=== PATIENT | male | born 1970 | race African-American/Black ===

== ENCOUNTER 2019-03-19 10:25 | Observation (INO) ==
[2019-03-19 11:21] LABS: Basophils % 0.2 % (0.0-0.8); Eosinophils # 0.1 10*3/uL (0.0-0.87); Eosinophils % 1.4 % (0.00-10.9); Hematocrit 39.2 VOL% (42.0-52.0); Hemoglobin 12.8 GM/DL (14.0-18.0); Immature Granulocytes % 0.9 %; Immature Granulocytes Absolute 0.08 #; Mean Corpuscular HGB Conc 32.7 GM/DL (32-36); Mean Corpuscular Volume 92.9 FL (87-102); Mean Platelet Volume 9.5 FL (9.6-12.0); Monocytes % 15.5 % (1.7-12.7); Platelet Count 316 T/CUMM (130-400); Red Blood Count 4.22 MC/CUMM (3.8-5.5); Red Cell Distribution Width 13.3 % (9.3-17.3); White Blood Count 8.8 T/CUMM (4-12)
[2019-03-19 11:44] LABS: Calcium 9.1 MG/DL (8.5-10.1); Osmolality,Calculated 275.4 MOS/KG (273-304)
[2019-03-19] MEDS ORDERED: methylPREDNISolone SOD SUC 125 MG/2 ML VIAL IV STA (11:47)
[2019-03-19] MEDS ORDERED: cefTRIAXone 1,000 MG in SODIUM CHLORIDE 0.9% 100 ML IV STA (11:47)
[2019-03-19] MEDS ORDERED: ALBUTEROL 2.5 MG/3 ML NEB RESP TX SCH (12:00)
[2019-03-19 12:20] LABS: ABG HCO3 35.2 MMOL/L (20-26); ABG Oxygen Saturation 99.6 % (95-100); ABG PH 7.372 (7.35-7.45); ABG PO2 233.1 MM HG (80-95); ABG TCO2 37.1 MMOL/L (23-27); Allen Test Positive; Pt O2 Delivery Device Other
[2019-03-19] MEDS ORDERED: ALBUTEROL 2.5 MG/3 ML NEB RESP TX PRN (13:33)
[2019-03-19] MEDS ORDERED: ACETAMINOPHEN 325 MG TABLET PO PRN (13:35)
[2019-03-19] MEDS ORDERED: traZODone 50 MG TABLET PO PRN (13:35)
[2019-03-19] MEDS ORDERED: ONDANSETRON 4 MG/2 ML VIAL IV PRN (13:35)
[2019-03-19] MEDS ORDERED: MORPHINE 4 MG/1 ML VIAL IV PRN (13:35)
[2019-03-19 16:24] LABS: Apearance,Urine CLEAR (Clear); Bilirubin,Urine Negative (Negative); Blood, Urine Negative (Negative); Glucose,Urine (UA) Negative (Negative); Ketones,Urine Negative (Negative); Mucus,Urine Occasional /LPF (Occasional); Nitrite,Urine Negative (Negative); Protein,Urine Negative; RBC,Urine <1 /HPF (0-4); Urine Color Yellow (Yellow); Urine Urobilinogen < 2.0 EU/DL (0.2-1.0); WBC,Urine 1 /HPF (0-6)
[2019-03-19] MEDS: HEPARIN 5,000 UNIT/1 ML VIAL SUBCUT SCH ×2 (18:37→21:49)
[2019-03-19] MEDS: methylPREDNISolone SOD SUC 40 MG/1 ML VIAL IV SCH ×2 (18:40→21:49)
[2019-03-19] MEDS: ALBUTEROL/IPRATROPIUM 3 ML NEB RESP TX SCH (19:04)
[2019-03-19] MEDS: DOCUSATE SODIUM 100 MG CAPSULE PO SCH (21:49)
[2019-03-19] MEDS: ZALEPLON 5 MG CAPSULE PO PRN (21:50)
[2019-03-20] MEDS: ALBUTEROL/IPRATROPIUM 3 ML NEB RESP TX SCH ×4 (01:55→19:28)
[2019-03-20 05:26] LABS: Basophils % 0.1 % (0.0-0.8); Hemoglobin 10.9 GM/DL (14.0-18.0); Immature Granulocytes % 1.2 %; Lymphocytes # 0.3 10*3/uL (1.4-4.0); Lymphocytes % 3.3 % (21.2-54.2); Mean Corpuscular HGB Conc 31.1 GM/DL (32-36); Mean Corpuscular Volume 94.3 FL (87-102); Monocytes % 2.9 % (1.7-12.7); Neutrophils % 92.5 % (38.7-73.9); Platelet Count 289 T/CUMM (130-400); Red Blood Count 3.71 MC/CUMM (3.8-5.5); Red Cell Distribution Width 13.1 % (9.3-17.3); White Blood Count 8.4 T/CUMM (4-12)
[2019-03-20 05:56] LABS: Lymphocytes 8 % (20-55); Segmented Neutrophils 90 % (50-85); Total Cells Counted 100
[2019-03-20 05:57] LABS: Anisocytosis 1+; Platelet Estimate Adequate; Target Cells Few
[2019-03-20 06:08] LABS: Risk Ratio 1.79; Thyroid Stimulating Hormone 0.201 uIU/ml (0.358-3.74)
[2019-03-20 06:17] LABS: Bilirubin,Total 0.4 MG/DL (0.2-1.0); Calcium 8.4 MG/DL (8.5-10.1); Osmolality,Calculated 281.3 MOS/KG (273-304); Total Protein 6.3 G/DL (6.4-8.3)
[2019-03-20] MEDS: HEPARIN 5,000 UNIT/1 ML VIAL SUBCUT SCH ×3 (06:20→21:14)
[2019-03-20] MEDS: methylPREDNISolone SOD SUC 40 MG/1 ML VIAL IV SCH ×3 (06:21→21:09)
[2019-03-20] MEDS: DOCUSATE SODIUM 100 MG CAPSULE PO SCH ×2 (09:30→21:10)
[2019-03-20] MEDS: PANTOPRAZOLE 40 MG TABLET PO SCH (09:30)
[2019-03-20] MEDS: BUDESONIDE 0.5 MG/2 ML NEB RESP TX SCH ×2 (12:09→19:28)
[2019-03-20] MEDS ORDERED: cefTRIAXone 1,000 MG in SYRINGE 1 EACH IV SCH (12:30)
[2019-03-20] MEDS: AZITHROMYCIN 250 MG TABLET PO SCH (13:24)
[2019-03-20] MEDS ORDERED: MONTELUKAST 10 MG TABLET PO SCH (21:00)
[2019-03-20] MEDS: ZALEPLON 5 MG CAPSULE PO PRN (21:10)
[2019-03-21] MEDS: ALBUTEROL/IPRATROPIUM 3 ML NEB RESP TX SCH ×2 (00:31→07:13)
[2019-03-21] MEDS: HEPARIN 5,000 UNIT/1 ML VIAL SUBCUT SCH (05:23)
[2019-03-21] MEDS: methylPREDNISolone SOD SUC 40 MG/1 ML VIAL IV SCH (05:23)
[2019-03-21] MEDS: BUDESONIDE 0.5 MG/2 ML NEB RESP TX SCH (07:13)
[2019-03-21] MEDS: AZITHROMYCIN 250 MG TABLET PO SCH (08:27)
[2019-03-21] MEDS: PANTOPRAZOLE 40 MG TABLET PO SCH (08:27)
[2019-03-21] MEDS: DOCUSATE SODIUM 100 MG CAPSULE PO SCH (08:27)
[2019-03-21] MEDS ORDERED: BISOPROLOL/HCTZ 2.5-6.25 MG TABLET PO SCH (09:00)
[2019-03-21 09:17] VITALS: BP 142/84
== END 2019-03-21 10:59 | disposition home or self-care (01) ==
LOC: N.EDINP 10:25 → N.ED 10:25 → N.5E 20:38
PROVIDERS: ADMIT Family Medicine; ATTEND Family Medicine

== ENCOUNTER 2021-01-13 09:51 | Inpatient (IN) ==
[2021-01-13] MEDS ORDERED: methylPREDNISolone SOD SUC 125 MG/2 ML VIAL IV STA (10:15)
[2021-01-13] MEDS ORDERED: ALBUTEROL NEB SOLN 5 MG/ML 20 ML/BOTTLE ONE (10:21)
[2021-01-13 10:22] LABS: Basophils % 0.8 % (0.0-0.8); Eosinophils # 0.1 10*3/uL (0.0-0.87); Eosinophils % 2.4 % (0.00-10.9); Hematocrit 47.3 VOL% (42.0-52.0); Hemoglobin 14.7 GM/DL (14.0-18.0); Immature Granulocytes % 0.6 %; Immature Granulocytes Absolute 0.03 #; Lymphocytes % 19.4 % (21.2-54.2); Mean Corpuscular HGB Conc 31.1 GM/DL (32-36); Mean Corpuscular Volume 86.5 FL (87-102); Mean Platelet Volume 9.6 FL (9.6-12.0); Monocytes % 20.2 % (1.7-12.7); Neutrophils % 56.6 % (38.7-73.9); Platelet Count 190 T/CUMM (130-400); Red Blood Count 5.47 MC/CUMM (3.8-5.5); Red Cell Distribution Width 17.2 % (9.3-17.3); White Blood Count 5.1 T/CUMM (4-12)
[2021-01-13 10:29] LABS: PT Patient Result 11.1 SECS (10.5-12.0); Partial Thromboplastin Time 28.1 SECS (23.9-33.8)
[2021-01-13] MEDS ORDERED: ALBUTEROL NEB SOLN 5 MG/ML 20 ML/BOTTLE CONT NEB SCH (10:30)
[2021-01-13 10:39] LABS: Albumin 2.8 G/DL (3.4-5.0); Bilirubin,Total 1.14 MG/DL (0.2-1.0); Calcium 8.4 MG/DL (8.5-10.1); Osmolality,Calculated 268.1 MOS/KG (273-304); Total Protein 8.4 G/DL (6.4-8.2)
[2021-01-13 10:40] LABS: Platelet Estimate Adequate; Potassium 4.6 MMOL/L (3.5-5.1)
[2021-01-13 10:53] LABS: Bilirubin,Urine Negative (Negative); Blood, Urine Negative (Negative); Glucose,Urine (UA) Negative (Negative); Ketones,Urine Negative (Negative); Nitrite,Urine Negative (Negative); Protein,Urine Negative; RBC,Urine 1 /HPF (0-4); Squamous Epithelial Cell,Urine Occasional /HPF (0-10); Urine Appearance CLEAR (Clear); Urine Color Yellow (Yellow); Urine Specific Gravity 1.006 (1.001-1.035); Urine Urobilinogen < 2.0 EU/DL (0.2-1.0)
[2021-01-13] MEDS ORDERED: PIPERACILLIN/TAZOBACTAM 3,375 MG in SODIUM CHLORIDE 0.9% 100 ML IV STA (11:03)
[2021-01-13] MEDS ORDERED: GLUCAGON 1 MG VIAL IM PRN (13:08)
[2021-01-13] MEDS ORDERED: MORPHINE 4 MG/1 ML VIAL IV PRN (13:08)
[2021-01-13] MEDS ORDERED: ONDANSETRON 4 MG/2 ML VIAL IV PRN (13:08)
[2021-01-13] MEDS ORDERED: DOCUSATE SODIUM 100 MG CAPSULE PO PRN (13:08)
[2021-01-13] MEDS ORDERED: ACETAMINOPHEN 325 MG TABLET PO PRN (13:08)
[2021-01-13] MEDS ORDERED: DEXTROSE 50% 25 GM/50 ML VIAL IV PRN (13:08)
[2021-01-13] MEDS: AZITHROMYCIN INJ 500 MG in SODIUM CHLORIDE 0.9% 250 ML IV SCH (13:28)
[2021-01-13] MEDS: ENOXAPARIN 40 MG/0.4 ML SYRINGE SUBCUT SCH (13:28)
[2021-01-13] MEDS ORDERED: hydrALAZINE 20 MG/1 ML VIAL IV PRN (13:28)
[2021-01-13] MEDS: cefTRIAXone 1,000 MG in SODIUM CHLORIDE 0.9% 100 ML IV SCH (14:22)
[2021-01-13] MEDS: MULTIVITAMIN INJ 10 ML in SODIUM CHLORIDE 0.9% 1,000 ML IV SCH (14:53)
[2021-01-13] MEDS: methylPREDNISolone SOD SUC 40 MG/1 ML VIAL IV SCH ×2 (16:21→21:29)
[2021-01-13] MEDS: chlordiazePOXIDE 10 MG CAPSULE PO SCH ×2 (18:50→21:30)
[2021-01-13] MEDS: BUDESONIDE 0.5 MG/2 ML NEB RESP TX SCH (19:28)
[2021-01-13] MEDS: ALBUTEROL/IPRATROPIUM 3 ML NEB RESP TX SCH (19:28)
[2021-01-13] MEDS: MONTELUKAST 10 MG TABLET PO SCH (21:30)
[2021-01-14] MEDS: ALBUTEROL/IPRATROPIUM 3 ML NEB RESP TX SCH ×4 (00:26→19:27)
[2021-01-14] MEDS: methylPREDNISolone SOD SUC 40 MG/1 ML VIAL IV SCH ×4 (04:37→22:05)
[2021-01-14 06:28] LABS: Basophils % 0.1 % (0.0-0.8); Hematocrit 43.4 VOL% (42.0-52.0); Hemoglobin 13.8 GM/DL (14.0-18.0); Immature Granulocytes % 0.7 %; Immature Granulocytes Absolute 0.06 #; Lymphocytes # 0.4 10*3/uL (1.4-4.0); Lymphocytes % 4.1 % (21.2-54.2); Mean Corpuscular HGB Conc 31.8 GM/DL (32-36); Mean Corpuscular Volume 87.5 FL (87-102); Mean Platelet Volume 10.4 FL (9.6-12.0); Monocytes % 4.4 % (1.7-12.7); Neutrophils % 90.7 % (38.7-73.9); Platelet Count 175 T/CUMM (130-400); Red Blood Count 4.96 MC/CUMM (3.8-5.5); Red Cell Distribution Width 17.1 % (9.3-17.3); White Blood Count 8.5 T/CUMM (4-12)
[2021-01-14 06:53] LABS: Hypochromasia 1+; Lymphocytes 1 % (20-55); Microcytosis 1+; Platelet Estimate Adequate; Segmented Neutrophils 96 % (50-85); Total Cells Counted 100
[2021-01-14 07:03] LABS: Osmolality,Calculated 278.4 MOS/KG (273-304); Potassium 4.2 MMOL/L (3.5-5.1); Thyroid Stimulating Hormone 0.32 uIU/ml (0.358-3.74)
[2021-01-14] MEDS: BUDESONIDE 0.5 MG/2 ML NEB RESP TX SCH ×2 (07:05→19:27)
[2021-01-14] MEDS: NICOTINE 21 MG/24 HR PATCH TRANSDERM SCH (09:11)
[2021-01-14] MEDS: chlordiazePOXIDE 10 MG CAPSULE PO SCH ×3 (09:11→20:49)
[2021-01-14] MEDS: PANTOPRAZOLE 40 MG TABLET PO SCH (09:11)
[2021-01-14] MEDS: ENOXAPARIN 40 MG/0.4 ML SYRINGE SUBCUT SCH (13:01)
[2021-01-14] MEDS: AZITHROMYCIN INJ 500 MG in SODIUM CHLORIDE 0.9% 250 ML IV SCH (13:02)
[2021-01-14] MEDS: MULTIVITAMIN INJ 10 ML in SODIUM CHLORIDE 0.9% 1,000 ML IV SCH (14:19)
[2021-01-14] MEDS: cefTRIAXone 1,000 MG in SODIUM CHLORIDE 0.9% 100 ML IV SCH (16:12)
[2021-01-14] MEDS: MONTELUKAST 10 MG TABLET PO SCH (20:50)
[2021-01-15] MEDS: ALBUTEROL/IPRATROPIUM 3 ML NEB RESP TX SCH ×4 (00:09→20:05)
[2021-01-15] MEDS: methylPREDNISolone SOD SUC 40 MG/1 ML VIAL IV SCH ×4 (03:33→21:37)
[2021-01-15 05:13] LABS: Basophils % 0.1 % (0.0-0.8); Hemoglobin 13.7 GM/DL (14.0-18.0); Immature Granulocytes % 0.5 %; Immature Granulocytes Absolute 0.06 #; Lymphocytes # 0.3 10*3/uL (1.4-4.0); Lymphocytes % 2.8 % (21.2-54.2); Mean Corpuscular HGB Conc 30.4 GM/DL (32-36); Mean Corpuscular Volume 90.2 FL (87-102); Mean Platelet Volume 10.4 FL (9.6-12.0); Monocytes % 5.4 % (1.7-12.7); Neutrophils % 91.2 % (38.7-73.9); Platelet Count 176 T/CUMM (130-400); Red Blood Count 4.99 MC/CUMM (3.8-5.5); Red Cell Distribution Width 16.9 % (9.3-17.3); White Blood Count 12.3 T/CUMM (4-12)
[2021-01-15 05:36] LABS: Lymphocytes 3 % (20-55); Segmented Neutrophils 91 % (50-85); Total Cells Counted 100
[2021-01-15 05:37] LABS: Hypochromasia Slight; Microcytosis Slight; Platelet Estimate Adequate
[2021-01-15 05:48] LABS: Osmolality,Calculated 282.3 MOS/KG (273-304); Potassium 3.8 MMOL/L (3.5-5.1)
[2021-01-15] MEDS: BUDESONIDE 0.5 MG/2 ML NEB RESP TX SCH ×2 (07:34→20:10)
[2021-01-15] MEDS: PANTOPRAZOLE 40 MG TABLET PO SCH (09:10)
[2021-01-15] MEDS: chlordiazePOXIDE 10 MG CAPSULE PO SCH ×3 (09:10→21:37)
[2021-01-15] MEDS: NICOTINE 21 MG/24 HR PATCH TRANSDERM SCH (09:11)
[2021-01-15] MEDS: AZITHROMYCIN INJ 500 MG in SODIUM CHLORIDE 0.9% 250 ML IV SCH (12:32)
[2021-01-15] MEDS: ENOXAPARIN 40 MG/0.4 ML SYRINGE SUBCUT SCH (13:01)
[2021-01-15] MEDS: cefTRIAXone 1,000 MG in SODIUM CHLORIDE 0.9% 100 ML IV SCH (14:49)
[2021-01-15] MEDS: MULTIVITAMIN INJ 10 ML in SODIUM CHLORIDE 0.9% 1,000 ML IV SCH (16:03)
[2021-01-15] MEDS: MONTELUKAST 10 MG TABLET PO SCH (21:37)
[2021-01-16] MEDS: ALBUTEROL/IPRATROPIUM 3 ML NEB RESP TX SCH ×2 (02:23→07:15)
[2021-01-16] MEDS: methylPREDNISolone SOD SUC 40 MG/1 ML VIAL IV SCH ×2 (04:33→09:55)
[2021-01-16 05:49] LABS: Calcium 8.1 MG/DL (8.5-10.1); Osmolality,Calculated 284.1 MOS/KG (273-304); Potassium 3.9 MMOL/L (3.5-5.1)
[2021-01-16 06:02] LABS: Basophils % 0.1 % (0.0-0.8); Hematocrit 47.6 VOL% (42.0-52.0); Hemoglobin 14.5 GM/DL (14.0-18.0); Immature Granulocytes % 0.7 %; Immature Granulocytes Absolute 0.08 #; Lymphocytes # 0.4 10*3/uL (1.4-4.0); Lymphocytes % 3.5 % (21.2-54.2); Mean Corpuscular HGB Conc 30.5 GM/DL (32-36); Mean Corpuscular Volume 91.7 FL (87-102); Mean Platelet Volume 10.7 FL (9.6-12.0); Monocytes % 4.1 % (1.7-12.7); Neutrophils % 91.6 % (38.7-73.9); Platelet Count 189 T/CUMM (130-400); Red Blood Count 5.19 MC/CUMM (3.8-5.5); Red Cell Distribution Width 17.1 % (9.3-17.3); White Blood Count 10.9 T/CUMM (4-12)
[2021-01-16 06:16] LABS: Lymphocytes 1 % (20-55); Segmented Neutrophils 90 % (50-85); Total Cells Counted 100
[2021-01-16 06:17] LABS: Hypochromasia 1+
[2021-01-16 06:18] LABS: Microcytosis Slight
[2021-01-16 06:19] LABS: Platelet Estimate Adequate
[2021-01-16] MEDS: BUDESONIDE 0.5 MG/2 ML NEB RESP TX SCH (07:15)
[2021-01-16] MEDS: chlordiazePOXIDE 10 MG CAPSULE PO SCH (09:55)
[2021-01-16] MEDS: NICOTINE 21 MG/24 HR PATCH TRANSDERM SCH (09:55)
[2021-01-16] MEDS: PANTOPRAZOLE 40 MG TABLET PO SCH (09:55)
[2021-01-16 11:42] VITALS: BP 148/86
[2021-01-17 00:06] LABS: Specimen Source NASOPHARYNGEAL SWAB
== END 2021-01-16 14:21 | disposition home or self-care (01) | DRG 140 ==
LOC: SUATTDRO → N.ED 09:51 → SUATTDRO 12:45 → N.EDINP 12:45 → N.5E 17:23
PROVIDERS: ADMIT Internal Medicine; ATTEND Internal Medicine

== ENCOUNTER 2022-07-04 18:52 | Inpatient (IN) ==
[2022-07-04] MEDS ORDERED: methylPREDNISolone SOD SUC 125 MG/2 ML VIAL IV STA (19:16)
[2022-07-04] MEDS ORDERED: ALBUTEROL/IPRATROPIUM 3 ML NEB RESP TX STA (19:16)
[2022-07-04 19:40] LABS: INR 1.1; PT Patient Result 12.1 SECS (10.1-12.1)
[2022-07-04 19:45] LABS: Basophils # 0.1 10*3/uL (0.0-0.2); Eosinophils % 0.6 % (0.00-10.9); Hematocrit 47.2 VOL% (42.0-52.0); Hemoglobin 14.5 GM/DL (14.0-18.0); Immature Granulocytes % 0.4 %; Immature Granulocytes Absolute 0.03 #; Lymphocytes # 0.9 10*3/uL (1.4-4.0); Lymphocytes % 12.8 % (21.2-54.2); Mean Corpuscular HGB Conc 30.7 GM/DL (32-36); Mean Corpuscular Volume 75.5 FL (87-102); Mean Platelet Volume 9.4 FL (9.6-12.0); Monocytes # 1.5 10*3/uL (0.11-0.8); Monocytes % 20.3 % (1.7-12.7); Neutrophils % 64.9 % (38.7-73.9); Platelet Count 185 T/CUMM (130-400); Red Blood Count 6.25 MC/CUMM (3.8-5.5); Red Cell Distribution Width 22.7 % (9.3-17.3); White Blood Count 7.2 T/CUMM (4-12)
[2022-07-04 19:57] LABS: Albumin 3.4 G/DL (3.4-5.0); Bilirubin,Total 1.5 MG/DL (0.20-1.00); Calcium 9.2 MG/DL (8.5-10.1); Osmolality,Calculated 273.5 MOS/KG (273-304); Potassium 3.9 MMOL/L (3.5-5.1); Total Protein 8.4 G/DL (6.4-8.2)
[2022-07-04 20:40] LABS: ABG Base Excess 1.6 MMOL/L (-2.5-2.5); ABG HCO3 25.8 MMOL/L (20-26); ABG Oxygen Saturation 99.5 % (95-100); ABG PH 7.216 (7.35-7.45); ABG TCO2 29.4 MMOL/L (23-27)
[2022-07-04 20:43] LABS: Lymphocytes 10 % (20-55); Total Cells Counted 100
[2022-07-04 20:45] LABS: Anisocytosis 1+; Microcytosis Slight; Platelet Estimate Adequate; Polychromasia Slight
[2022-07-04 20:46] LABS: ABG PCO2 81.9 MM HG (35-48)
[2022-07-04 20:46] LABS: Macrocytosis Slight
[2022-07-04 20:47] LABS: Target Cells Slight
[2022-07-04] MEDS ORDERED: LEVOFLOXACIN INJ 750 MG/150 ML PREMIX IV STA (21:11)
[2022-07-04 23:28] LABS: ABG Base Excess 3.6 MMOL/L (-2.5-2.5); ABG HCO3 27.7 MMOL/L (20-26); ABG Oxygen Saturation 98.9 % (95-100); ABG PCO2 68.9 MM HG (35-48); ABG PH 7.289 (7.35-7.45)
[2022-07-05] MEDS ORDERED: guaiFENesin/DM ER 600-30 MG TABLET PO PRN (00:37)
[2022-07-05] MEDS ORDERED: DOCUSATE SODIUM 100 MG CAPSULE PO PRN (00:37)
[2022-07-05] MEDS ORDERED: CALCIUM CARBONATE CHEW 500 MG TABLET PO PRN (00:37)
[2022-07-05] MEDS ORDERED: NICOTINE 21 MG/24 HR PATCH TRANSDERM PRN (00:37)
[2022-07-05] MEDS ORDERED: ONDANSETRON 4 MG/2 ML VIAL IV PRN (00:37)
[2022-07-05] MEDS ORDERED: hydrALAZINE 20 MG/1 ML VIAL IV PRN (00:37)
[2022-07-05] MEDS ORDERED: ZALEPLON 5 MG CAPSULE PO PRN (00:37)
[2022-07-05] MEDS ORDERED: ALBUTEROL 2.5 MG/3 ML NEB RESP TX PRN (00:37)
[2022-07-05] MEDS ORDERED: ACETAMINOPHEN 325 MG TABLET PO PRN (00:37)
[2022-07-05 04:56] LABS: Basophils % 0.1 % (0.0-0.8); Hematocrit 45.3 VOL% (42.0-52.0); Hemoglobin 13.6 GM/DL (14.0-18.0); Immature Granulocytes % 1.1 %; Immature Granulocytes Absolute 0.13 #; Lymphocytes # 0.3 10*3/uL (1.4-4.0); Lymphocytes % 2.1 % (21.2-54.2); Mean Platelet Volume 10.1 FL (9.6-12.0); Monocytes # 0.3 10*3/uL (0.11-0.8); Monocytes % 2.2 % (1.7-12.7); Neutrophils % 94.5 % (38.7-73.9); Platelet Count 175 T/CUMM (130-400); Red Blood Count 5.88 MC/CUMM (3.8-5.5); Red Cell Distribution Width 22.2 % (9.3-17.3); White Blood Count 11.9 T/CUMM (4-12)
[2022-07-05 04:59] LABS: Calcium 8.6 MG/DL (8.5-10.1); Hypochromia Slight; Lymphocytes 1 % (20-55); Microcytosis Slight; Osmolality,Calculated 275.7 MOS/KG (273-304); Platelet Estimate Adequate; Potassium 4.9 MMOL/L (3.5-5.1); Total Cells Counted 100
[2022-07-05] MEDS: ALBUTEROL/IPRATROPIUM 3 ML NEB RESP TX SCH ×5 (06:12→20:37)
[2022-07-05] MEDS: methylPREDNISolone SOD SUC 40 MG/1 ML VIAL IV SCH ×3 (07:15→18:29)
[2022-07-05] MEDS: HEPARIN 5,000 UNIT/1 ML VIAL SUBCUT SCH ×2 (09:34→21:19)
[2022-07-05] MEDS ORDERED: LEVOFLOXACIN INJ 750 MG/150 ML PREMIX IV SCH (21:00)
[2022-07-06] MEDS: ALBUTEROL/IPRATROPIUM 3 ML NEB RESP TX SCH ×3 (01:00→08:50)
[2022-07-06] MEDS: methylPREDNISolone SOD SUC 40 MG/1 ML VIAL IV SCH ×3 (01:27→11:15)
[2022-07-06 04:48] LABS: Albumin 2.5 G/DL (3.4-5.0); Bilirubin,Total 0.9 MG/DL (0.20-1.00); Calcium 8.5 MG/DL (8.5-10.1); Potassium 4.5 MMOL/L (3.5-5.1); Total Protein 7.1 G/DL (6.4-8.2)
[2022-07-06 05:08] LABS: Hematocrit 42.8 VOL% (42.0-52.0); Hemoglobin 12.8 GM/DL (14.0-18.0); Immature Granulocytes % 0.7 %; Immature Granulocytes Absolute 0.05 #; Lymphocytes # 0.2 10*3/uL (1.4-4.0); Lymphocytes % 2.6 % (21.2-54.2); Mean Corpuscular HGB Conc 29.9 GM/DL (32-36); Mean Corpuscular Volume 77.5 FL (87-102); Mean Platelet Volume 10.6 FL (9.6-12.0); Monocytes # 0.3 10*3/uL (0.11-0.8); Monocytes % 4.7 % (1.7-12.7); Platelet Count 158 T/CUMM (130-400); Red Blood Count 5.52 MC/CUMM (3.8-5.5); Red Cell Distribution Width 21.7 % (9.3-17.3)
[2022-07-06 05:14] LABS: Hypochromia Slight; Lymphocytes 3 % (20-55); Microcytosis Slight; Platelet Estimate Adequate; Total Cells Counted 100
[2022-07-06] MEDS: HEPARIN 5,000 UNIT/1 ML VIAL SUBCUT SCH (09:21)
[2022-07-06 12:10] VITALS: BP 116/79
== END 2022-07-06 13:13 | disposition home or self-care (01) | DRG 140 ==
LOC: N.ED 18:52 → N.EDINP 07-05 00:37 → N.TELEN 07-05 07:55
PROVIDERS: ADMIT Internal Medicine; ATTEND Internal Medicine